=== PATIENT | male | born 1995 | race Caucasian/White ===

== ENCOUNTER 2018-02-10 19:02 | Emergency (ER) | payer OTHER ==
[2018-02-10] MEDS: KETOROLAC 60 MG INJ IM (20:38)
== END 2018-02-10 21:32 | disposition home or self-care (01) ==
LOC: FTE 19:02
DX: S16.1XXA Strain of muscle, fascia and tendon at neck level, initial encounter (principal); X58.XXXA Exposure to other specified factors, initial encounter; Y92.9 Unspecified place or not applicable
CPT/HCPCS: 96372; 99284-25

== ENCOUNTER 2018-06-28 15:12 | Emergency (ER) | payer OTHER ==
[2018-06-28] MEDS: LIDOCAINE 1% (MDV) 10 ML INJ INJ (18:38)
[2018-06-28] MEDS: BENZOCAINE 20% 56 ML SPRAY TOP (18:38)
[2018-06-28] MEDS ORDERED: LIDOCAINE 1% (MPF) 5 ML VIAL INJ (18:50)
== END 2018-06-28 18:52 | disposition home or self-care (01) ==
LOC: FTE 15:12
DX: K64.5 Perianal venous thrombosis (principal)
CPT/HCPCS: 46083; 99284-25

== ENCOUNTER 2018-07-02 18:15 | Emergency (ER) | payer OTHER | END 2018-07-02 19:35 | disposition home or self-care (01) | LOC: FTE 18:15 | DX: K64.4 Residual hemorrhoidal skin tags (principal) | CPT/HCPCS: 99282-25; Z7502 ==